=== PATIENT | female | born 1970 | race Caucasian/White ===

== ENCOUNTER 2022-07-22 07:54 | Day surgery (SDC) | payer OTHER ==
[~2022-07-22] VITALS: Ht 162.6 cm; Wt 103.4 kg
[2022-07-22] MEDS ORDERED: LIDOCAINE 2% 100 MG/5 ML UJET TP ONE (09:35)
[2022-07-22] MEDS ORDERED: diphenhydrAMINE 50 MG/ML VIAL ONE (09:35)
[2022-07-22] MEDS ORDERED: MIDAZOLAM 5 MG/5 ML VIAL ONE (09:35)
[2022-07-22] MEDS ORDERED: fentaNYL citrate 0.05 MG/ML VIAL ONE (09:35)
[2022-07-22] MEDS ORDERED: fentaNYL citrate 0.05 MG/ML VIAL IVP ONE (12:50)
[2022-07-22] MEDS ORDERED: MIDAZOLAM 2 MG/2 ML VIAL IVP ONE (12:50)
== END 2022-07-22 11:20 | disposition home or self-care (01) ==
LOC: MMU 07:54 → MOR 07:54
PROVIDERS: ATTEND Internal Medicine Gastroenterology
DX: K62.5 Hemorrhage of anus and rectum (principal); K63.5 Polyp of colon; K64.8 Other hemorrhoids; J45.909 Unspecified asthma, uncomplicated; F17.210 Nicotine dependence, cigarettes, uncomplicated; M19.90 Unspecified osteoarthritis, unspecified site; Z80.49 Family history of malignant neoplasm of other genital organs; E66.01 Morbid (severe) obesity due to excess calories; Z68.41 Body mass index [BMI] 40.0-44.9, adult; Z79.899 Other long term (current) drug therapy; Z20.822 Contact with and (suspected) exposure to COVID-19
CPT/HCPCS: J1200; J2250; J3010